=== PATIENT | male | born 1950 | race African-American/Black ===

== ENCOUNTER 2016-10-08 19:27 | Emergency (ER) | payer OTHER ==
[~2016-10-08 19:27] MED LIST: ASPI-628 PO; HYDR25TA4 PO; LISI40TA PO
[2016-10-08 19:42] VITALS: BP 193/123; PULSE 103; RESP 16; O2SAT 97
--- NOTE | 2016-10-08 21:55 | ED.REPORT ---
HPI-Extremity Problem Upper Date of Service Oct 08, 2016 ED Provider: Chucky Ingram MD Pt is a 65 y/o right-handed male w/ a hx of lymphoma in remission for 5 years, uncontrolled HTN, presenting to the ED c/o worsening right sided neck pain with radiation to the right elbow onset 1.5 weeks ago. Pt states that he woke up with the pain and there was no mechanism of injury. He c/o associated tingling of the right arm which is exacerbated by movement of his neck. He has felt this pain before but it was 1 year ago and self-resolved. Pt denies swelling of the RLE or swelling of the neck, RUE weakness, fever, chills, CP, SOB, nausea, vomiting. His pain is exacerbated by twisting of the neck towards his right arm and to the left side, worse to the right. His pain is not worse during the night. Nursing Notes Stated Complaint: ARM PAIN Chief Complaint: Extremity Trauma Nursing Notes Reviewed: Yes (Relay Network, Row [place] not reconciled) Allergies: Coded Allergies: No Known Allergies (Verified , 12/04/13) Scheduled Aspirin (Aspir 81) 81 Mg Tablet.dr 81 MG PO DAILY Hydrochlorothiazide (Hydrochlorothiazide) 25 Mg Tablet 25 MG PO DAILY Lisinopril (Lisinopril) 40 Mg Tablet 40 MG PO DAILY Lisinopril / HCTZ 20-25 mg (Lisinopril / HCTZ 20-25 mg) 1 Each Tablet 1 EACH PO DAILY Scheduled PRN Hydrocodone-Acetaminophen 5-325 mg (Hydrocodone-Acetaminophen 5-325 mg) 1 Each Tablet 1 TABLET PO TID PRN PRN For Pain General Time Seen by MD: 21:50 Chief Complaint Other (RUE pain) Hx Obtained From: Patient Arrived By: Walk-in Onset Occurred: 1 week ago Symptom Duration: Since onset Location: : Arm right Quality: Painful Severity: Current: Moderate Severity: Maximum: Moderate Exacerbated by: Range of motion Similar Sx Previous: Yes Past Medical History Past Medical History Notes: Oncologist Dr. Campbell PCP Dr. Rapp Past Medical History History of diffuse large cell B-cell lymphoma presenting with a chest wall mass invading the sternum, status post chemotherapy 2008, radiation therapy in 2009, currently in remission Persistent pleural density R following treatment Hypertension - uncontrolled Borderline diabetes Past Surgical History Port-a-cath Smoking History Current Every Day Smoker Social History Alcohol Use: 1-3 per day Ambulatory Status Independent Review of Systems Constitutional: Denies: Chills, Fever Musculoskeletal: Reports: Extremity pain, Neck pain, Denies: Extremity swelling Neurologic: Reports: Numbness, Denies: Weakness Complete sys rev & neg: except as marked. Respiratory: Denies: Shortness of breath Cardiovascular: Denies: Chest pain GI: Denies: Abdominal pain, Nausea, Vomiting Physical Exam Initial Vital Signs Vital Signs (First) Date Time Temp Pulse Resp B/P Pulse Ox O2 Delivery O2 Flow Rate FiO2 10/08/16 19:42 36.6 103 16 193/123 97 Room Air Initial VS: Reviewed, Vital signs abnormal (severe hypertension) Head / Eyes: Atraumatic, Normocephalic, PERRL ENT: Mucous membranes moist, Conjunctiva normal, No scleral icterus Cardiovascular: Regular rate & rhythm, Heart sounds normal, Intact distal pulses Abdomen / GI: Soft, Non-tender Lower Extremities: Vascular intact, Neuro intact, No swelling, No tenderness Skin: Warm, Dry, No cyanosis Neurologic: Alert, Oriented, Nonfocal Psychiatric: Mood/affect normal, Behavior normal, Normal thought content General/Constitutional: Awake, Alert, Well appearing, Cooperative, Not toxic appearing Appearance / Presentation: Positive: Cachectic, Uncomfortable (mild) Neck: Atraumatic, Supple, No meningismus, Full range of motion, No swelling, Non-tender, No midline vertebral tend Recurrence of pain with external rotation, ABduction, flexion and extension of head and neck Respiratory / Chest: Atraumatic, Breath sounds NL, Breath sounds = bilat, No respiratory distress, No rales, No rhonchi, No wheezing, No retractions, No stridor, No chest tenderness, No chest wall deformity, No crepitus Port-a-cath right chest Upper Extremity / MS: Atraumatic, Full range of motion, No swelling, Non-tender , No snuffbox tenderness, No erythema, No deformity, Neurologic intact, Vascular intact, No compartment syndrome, No clubbing/cyanosis, No edema Neuro exam completely normal Interpretation & Diagnostics Interpretation & Diagnostics: US right arm: no DVT identified per US tech Lab Results Interpretation Result Diagram: 10/08/16 2338 10/08/16 2338 Test 10/08/16 23:38 White Blood Count 2.3th/mm3 (3.8-10.1) Red Blood Count 5.26mil/mm3 (4.40-5.80) Hemoglobin 14.8g/dL (13.8-17.2) Hematocrit 45.6% (41.0-50.0) Mean Corpuscular Volume 86.7fL (81-100) Mean Corpuscular Hemoglobin 28.1pg (27.0-35.0) Mean Corpuscular Hemoglobin Concent 32.5% (32.0-37.0) Red Cell Distribution Width 13.9% (12.3-15.4) Platelet Count 161bil/L (150-400) Neutrophils (%) (Auto) 66.6% (40-74) Lymphocytes (%) (Auto) 16.5% (14-46) Monocytes (%) (Auto) 11.3% (4-12) Eosinophils (%) (Auto) 4.3% (0-5) Basophils (%) (Auto) 0.9% (0-3) Sodium Level 142mEq/L (134-144) Potassium Level 3.7mEq/L (3.5-5.2) Chloride Level 105mEq/L (97-108) Carbon Dioxide Level 22mmol/L (18-29) Blood Urea Nitrogen 12mg/dL (8-27) Creatinine 0.72mg/dL (0.76-1.27) Estimat Glomerular Filtration Rate 117mL/min (>59) Glucose Level 90mg/dL (60-99) Calcium Level 8.2mg/dL (8.5-10.1) Total Bilirubin 0.9mg/dL (0.0-1.2) Aspartate Amino Transf (AST/SGOT) 23U/L (0-50) Alanine Aminotransferase (ALT/SGPT) 15U/L (0-44) Alkaline Phosphatase 94U/L (25-160) Troponin T 0.010ug/L (0.0-0.011) Total Protein 6.0g/dL (6.4-8.4) Albumin 3.5g/dL (3.4-5.0) Hold Herbert Top Tube Received (Received) Lab Results Interpretation: CbC nonspecific leukopenia CMP we will functions normal ECG Interpretation ECG Interpretation: Sinus rhythm rate 86 Findings suggestive of LVH with strain No prior EKG available for comparison Time: 22:33 Interpreted by: ED physician Normal ECG Interpretation: No acute ischemic changes Re-Eval/Medical Decision Med Decision/Clinical Course This is a 65-year-old -[place] male presents with complaint of over a week of right arm pain. He reports pain reading from the neck down to the right elbow. It is worse with external rotation, abduction, flexion and extension of the neck, and external rotation of the neck. There is a little bit of tingling in the right arm, but no motor weakness. The symptoms were worse today, which brought him into the emergency department. He absolutely denies any chest pain, shortness breath, diaphoresis, or exertional chest discomfort. He has no prior history of cardiac disease. He does have a history of hypertension, which he admits he has not been taking any medicine for some time - but indicates that he is supposed to be on lisinopril and hydrochlorothiazide. The patient has a residual Port-A-Cath in the right chest which she reports has not been managed in the past year, but he denies any prior history of DVT, or any overt swelling of the right arm. On exam the patient's profoundly hypertensive on initial assessment, and is not significantly hypertensive on reexam assessment. The arm is neurovascularly intact, with no motor findings of the radial, ulnar, median, axillary nerves evident. However the patient does not report any pain at night, his symptoms are more in the arm and the shoulder, and they are worsened with flexion and extension movement of the neck. I find it difficult to really localize the exact pain, and the differential includes a cervical myelopathy, rotator cuff problem, or potentially even an deep vein thrombosis in this patient has had a Port-A-Cath due to previous lymphoma. I do not appreciate any current lymphadenopathy, there is no evidence of SVC syndrome or other overt pathology. His EKG demonstrates a normal sinus rhythm but is notable for the presence of left ventricular hypertrophy with strain-and had no prior EKG available for comparison. I clincially doubt a cardiac etiology in this patient, but given the absence of prior EKG, the severe hypertension a troponin was obtained and was normal-after a full week of continuous symptoms, this argues against acute myocardial injury. Labs are obtained given the hypertension and the patient's risk factors and poorly controlled hypertension. However no renal function or abnormality was appreciated. Ultrasound of the arm demonstrates no DVT. Patient he has follow-up scheduled with his PCP on Tuesday. And I think that the further workup-the possibility of MR imaging of the cervical spine, or shoulder evaluation can be deferred to the PCP, as there are no clinical findings of acute fracture dislocation or an acute neurologic emergency.. I am not finding any evidence of recurrence of lymphoma or SVC syndrome clinically, and again can defer any further imaging to the PCP. Patient did receive symptomatically for some pain medicine. I am providing some hydrocodone until he can follow-up on Tuesday. I have also spent extensive time indicating the importance of the patient beginning to carefully manage his high blood pressure, in particular pointed out that the development of LVH is a sign that the hypertension is clinically relevant, and even though he is asymptomatic-if left untreated he is at relatively high risk of developing a location such as congestive heart failure, renal failure, and/or stroke. I have gone ahead and written a prescription for lisinopril 20 mg/ hydrochlorothiazide 25 mg in combination as the patient indicated that he really did not like taking 2 pills when he had no symptoms, and I am sympathetic to that-I have indicated he should let Dr. Warner her know that I have written this prescription for 30 day supply. Source of Hx: Old records Re-Evaluation/Progress : Time of Eval: 23:08 Re-Evaluation/Progress Note: Informed pt of need for labs due to abnormal EKG. Counseled Regarding: Diagnosis, Lab results, Need for follow-up, When/why to return to ED Discharge & Departure Impression: Primary Impression: Right arm pain Additional Impressions: Hypertension Hypertension type: essential hypertension Hypertension goal: unspecified goal Qualified Code: I10 - Essential (primary) hypertension Left ventricular hypertrophy Leukopenia Leukopenia type: unspecified Qualified Code: D72.819 - Decreased white blood cell count, unspecified Disposition: Home Discharge Condition All VS Reviewed: Yes Condition: Stable Referrals: Slick Rapp MD (PCP) Scribe Attestation Portions of this note were transcribed by Michael Cotto and Andrey Porter. I, Dr. Ingram personally performed the history, physical exam and medical decision -making; I reviewed and confirmed the accuracy of the information in the transcribed note. Signed by Micahel Cotto and Jacque Santos, 10/08/162214 copies to: Slick Rapp MD, Matthew F MD Oct 08, 2016 21:55 MICHAEL COTTO Oct 08, 2016 22:04 Andrey Porter Oct 08, 2016 23:08
[2016-10-08] MEDS ORDERED: HYDROmorphone 1 mg/mL Inj IM ONE (22:10)
[2016-10-08] MEDS ORDERED: Ondansetron 8 mg ODT Tablet PO ONE (22:25)
[2016-10-08 23:04] VITALS: BP 172/106; PULSE 80; O2SAT 96
[2016-10-08 23:55] LABS: BASOPHILS % (AUTO) 0.9 % (0-3); EOSINOPHILS % (AUTO) 4.3 % (0-5); MONOCYTES % (AUTO) 11.3 % (4-12); Mean Corpuscular Hemoglobin 28.1 pg (27.0-35.0); Mean Corpuscular Volume 86.7 fL (81-100); NEUTROPHILS % (AUTO) 66.6 % (40-74); Platelet Count 161 bil/L (150-400)
[2016-10-09] MEDS ORDERED: _HYDROcodone/APAP 5-325 mg Tablet PO PRN (00:10)
[2016-10-09 00:25] LABS: TROPONIN T 0.01 ug/L (0.0-0.011)
[2016-10-09] MEDS ORDERED: LISI1TAB11 PO (00:31)
[2016-10-09] MEDS ORDERED: HYDR-4003 PO (00:31)
--- NOTE | 2016-10-09 07:56 | DRSVH ---
PROCEDURE: US VENOUS ARM DUPLEX UNILATERAL, RIGHT INDICATIONS: ro DVT, RUE pain ho lymphoma/R chest portacath TECHNIQUE: Real-time imaging, as well as color and pulse Doppler interrogation, was performed of the right upper extremity deep veins from the inferior neck to the antecubital fossa. COMPARISON: None. FINDINGS: The internal jugular vein, visualized portions of the subclavian vein, axillary, and brach ial veins are free of intraluminal thrombus. Where physically possible, the veins are normally compr essible. Color and pulse Doppler demonstrate normal intraluminal flow, with expected phasicity and p ulsatility. Additional scanning of the cephalic and basilic veins of the superficial system demonstr ate normal compressibility, without thrombus. IMPRESSION: No deep vein thrombosis of the right upper extremity. Dictated by: Nikole Sheikh M.D. on 10/09/2016 at 7:54 Approved by: Nikole Sheikh M.D. on 10/09/2016 at 7:55
== END 2016-10-09 01:28 | disposition home or self-care (01) ==
LOC: SED 19:27
DX: M79.601 Pain in right arm (principal); I10 Essential (primary) hypertension; I51.7 Cardiomegaly; D72.819 Decreased white blood cell count, unspecified; M54.2 Cervicalgia; R20.2 Paresthesia of skin; F17.200 Nicotine dependence, unspecified, uncomplicated; Z79.82 Long term (current) use of aspirin
CPT/HCPCS: 36415; 80053; 84484; 85025; 93005; 93971; 96372; 99285; J1170